=== PATIENT | female | born 1940 | race Caucasian/White ===

== ENCOUNTER 2018-06-27 16:23 | Emergency (ER) | payer OTHER ==
[~2018-06-27] VITALS: Ht 147.3 cm; Wt 59.0 kg
[~2018-06-27 16:23] MED LIST: ACEDIPPM PO; ALBU90OI6 INH; ALBU90OI61 INH; AMOX500; ASCO500 PO; ASPI81EC PO; ATOR40TA; ATOR80; AZIT250 PO; CARV3.125 PO; CEPH500 PO; CLIN300 PO; CLOP75; CLOP75 PO; CRANBERRY250 MG PO; CYAN1000 PO; Cefpodoxime Pr100 MG PO; Cranberry300 MG PO; DIPH50 PO; DOCU100 PO; DULO60 PO; FLUC150A PO; FLUSAL2505 IH; Furosemide20 MG PO; HYDACE5 PO; HYDACE5325 PO; INDO25 PO; Indomethacin25 MG PO; LAVAP17G PO; LISI5 PO; MAGCHL64ER PO; METO25ER PO; METO50; MOXI400 PO; NAPR500 PO; OXYACE5T PO; PANT40; PANT40 PO; POTCHL10ER PO; PRAV20 PO; PRED10 PO; PRED20 PO; Percocet 5-3251 EACH PO; Pyridium100 MG PO; RANO500T; SERT100 PO; SULTRIDS PO; TIOT18 INH; TRAZ50 PO; TRAZADONE; UBID10 PO; Zanaflex2 M1 PO
[2018-06-27 17:59] LABS: BASOPHILS ABSOLUTE AUTO 0.03 K/mm3 (0.00-0.23); BASOPHILS PERCENT AUTO 0 % (0-2); EOSINOPHILS ABSOLUTE AUTO 0.13 K/mm3 (0.00-0.68); EOSINOPHILS PERCENT AUTO 1 % (0-6); Hematocrit 33.7 % (33.0-51.0); Hemoglobin 10.9 g/dL (11.5-16.0); IMMATURE GRAN ABSOLUTE AUTO 0.02 K/mm3 (0.00-0.10); IMMATURE GRAN PERCENT AUTO 0 % (0-1); LYMPHOCYTES ABSOLUTE AUTO 1.91 K/mm3 (0.84-5.20); LYMPHOCYTES PERCENT AUTO 20 % (21-46); MONOCYTES ABSOLUTE AUTO 1.07 K/mm3 (0.16-1.47); MONOCYTES PERCENT AUTO 11 % (4-13); Mean Corpuscular HGB 28.5 pg (26.0-34.0); Mean Corpuscular HGB Conc 32.3 g/dL (31.5-36.5); Mean Corpuscular Volume 88 fL (80-100); Mean Platelet Volume 9.6 fL (9.1-12.4); NEUTROPHILS PERCENT AUTO 67 % (41-73); Platelet Count 263 K/mm3 (150-400); RDW Coefficient Variation 12.9 % (11.7-14.2); RDW Standard Deviation 41.8 fL (35.1-46.3); Red Blood Cell Count 3.82 M/mm3 (3.80-5.20); White Blood Cell Count 9.56 K/mm3 (4.00-11.30)
[2018-06-27 18:12] LABS: Albumin, Blood 3.3 g/dL (3.4-5.0); Albumin/Globulin Ratio 0.8 (0.8-1.8); Bilirubin, Total 0.4 mg/dL (0.1-1.0); Calcium, Blood 9.7 mg/dL (8.5-10.1); Globulin, Blood 4.1 g/dL (2.2-4.0); Potassium, Blood 4.9 mmol/L (3.5-5.5); Total Protein, Blood 7.4 g/dL (6.4-8.2)
[2018-06-27 19:50] LABS: Source, Urine Clean Catch
[2018-06-27 19:54] LABS: Appearance, Urine Turbid (Clear); Bilirubin, Urine Neg (Neg); Blood, Urine 5+ (Neg); Glucose Qualitative, Urine Neg (Neg); Ketones, Urine 1+ (Neg); Leukocyte Esterase, Urine 3+ (Neg); Nitrite, Urine Neg (Neg); Protein, Urine 4+ (Neg); Urobilinogen, Urine NORM (Normal)
[2018-06-27 20:17] LABS: White Blood Cells, Urine TNTC /hpf (0-5)
[2018-06-27 20:18] LABS: Bacteria Many /hpf; Squamous Epithelial Cells Few /hpf (Few); Triple Phosphate Crystals Few /hpf
[2018-06-27] MEDS ORDERED: CEFD300 PO (22:02)
[2018-06-27] MEDS ORDERED: Prednisone20 MG PO (22:02)
== END 2018-06-27 22:49 | disposition home or self-care (01) ==
LOC: ER 16:23
PROVIDERS: Physician Assistant
DX: N39.0 Urinary tract infection, site not specified (principal); J44.1 Chronic obstructive pulmonary disease with (acute) exacerbation; Z88.8 Allergy status to other drugs, medicaments and biological substances; Z79.899 Other long term (current) drug therapy; Z79.82 Long term (current) use of aspirin; Z79.52 Long term (current) use of systemic steroids; I10 Essential (primary) hypertension; J44.9 Chronic obstructive pulmonary disease, unspecified; F17.210 Nicotine dependence, cigarettes, uncomplicated
CPT/HCPCS: 71046; 80053; 81001; 85025; 87077; 87086; 87186; 94640; 96374; 99284-25; J2930

== ENCOUNTER → 2018-09-14 | Outpatient (CLI) | payer OTHER ==
[~2018-09-14] MED LIST changes: +CEFD300 PO; +Prednisone20 MG PO
== END ==
LOC: LAB SHORT 19:06 → LAB 19:06
DX: N39.0 Urinary tract infection, site not specified (principal)
CPT/HCPCS: 87086

== ENCOUNTER → 2018-09-23 | Outpatient (CLI) | payer OTHER | LOC: LAB 18:58 → LAB SHORT 18:58 | DX: R05 Cough (principal) | CPT/HCPCS: 87070; 87077; 87186; 87798 ==

== ENCOUNTER → 2019-01-25 | Outpatient (CLI) | payer OTHER ==
[~2019-01-25] MED LIST changes: +Amoxicillin500 MG PO; +B Complex-Foli1 EACH PO; +Bactrim Ds Tab1 EACH PO; -CLOP75; +Calcium Magnes1 EAC1 PO; -FLUSAL2505 IH; +FLUT1DIS8 INH; +FURO20 PO; +LORA.5 PO; +LOSA25 PO; +PACERONE100 MG PO; +PROBIOTIC250 MG PO; -RANO500T; +RANO500T PO; +SENN187 PO; +VITAMIN D31000 UNI2 PO
== END ==
LOC: LAB 19:26 → LAB SHORT 19:26
DX: N39.0 Urinary tract infection, site not specified (principal)
CPT/HCPCS: 87077; 87086; 87186

== ENCOUNTER 2019-01-28 06:32 | Inpatient (IN) | payer OTHER ==
[~2019-01-28] VITALS: Ht 147.3 cm; Wt 56.0 kg
[~2019-01-28 06:32] MED LIST changes: -Amoxicillin500 MG PO; -B Complex-Foli1 EACH PO; -Bactrim Ds Tab1 EACH PO; -Calcium Magnes1 EAC1 PO; -FURO20 PO; -LORA.5 PO; -LOSA25 PO; -PACERONE100 MG PO; -PROBIOTIC250 MG PO; -SENN187 PO; -VITAMIN D31000 UNI2 PO
[2019-01-28 06:46] LABS: BASOPHILS ABSOLUTE AUTO 0.03 K/mm3 (0.00-0.23); BASOPHILS PERCENT AUTO 0 % (0-2); EOSINOPHILS ABSOLUTE AUTO 0.19 K/mm3 (0.00-0.68); EOSINOPHILS PERCENT AUTO 2 % (0-6); Hemoglobin 7.7 g/dL (11.5-16.0); IMMATURE GRAN ABSOLUTE AUTO 0.02 K/mm3 (0.00-0.10); IMMATURE GRAN PERCENT AUTO 0 % (0-1); LYMPHOCYTES PERCENT AUTO 23 % (21-46); MONOCYTES ABSOLUTE AUTO 0.73 K/mm3 (0.16-1.47); MONOCYTES PERCENT AUTO 8 % (4-13); Mean Corpuscular HGB 28.1 pg (26.0-34.0); Mean Corpuscular HGB Conc 30.8 g/dL (31.5-36.5); Mean Corpuscular Volume 91 fL (80-100); Mean Platelet Volume 9.5 fL (9.1-12.4); NEUTROPHILS PERCENT AUTO 66 % (41-73); Platelet Count 251 K/mm3 (150-400); RDW Coefficient Variation 13.6 % (11.7-14.2); Red Blood Cell Count 2.74 M/mm3 (3.80-5.20); White Blood Cell Count 8.77 K/mm3 (4.00-11.30)
[2019-01-28 07:08] LABS: Albumin, Blood 3.2 g/dL (3.4-5.0); Albumin/Globulin Ratio 0.9 (0.8-1.8); Bilirubin, Total 0.3 mg/dL (0.1-1.0); Bun/Creatinine Ratio 15.8 (12.0-20.0); Calcium, Blood 8.7 mg/dL (8.5-10.1); Creatinine, Blood 1.2 mg/dL (0.40-1.00); Globulin, Blood 3.5 g/dL (2.2-4.0); Potassium, Blood 4.5 mmol/L (3.5-5.5); Total Protein, Blood 6.7 g/dL (6.4-8.2)
--- NOTE | 2019-01-28 11:41 | NUR ---
called [facility] pharmacy and spoke to autumn, a copy of pt active medications should be faxed over shortly.
[2019-01-28 13:29] LABS: Percent Saturation 7.4 % (15.0-50.0)
[2019-01-28] MEDS ORDERED: B Complex-Foli1 EACH PO (13:48)
[2019-01-28] MEDS ORDERED: Bactrim Ds Tab1 EACH PO (13:50)
[2019-01-28] MEDS ORDERED: Calcium Magnes1 EAC1 PO (13:54)
[2019-01-28] MEDS ORDERED: LORA.5 PO (13:55)
[2019-01-28] MEDS ORDERED: LOSA25 PO (13:56)
[2019-01-28] MEDS ORDERED: METO25ER PO (13:58)
[2019-01-28] MEDS ORDERED: PROBIOTIC250 MG PO (14:00)
[2019-01-28] MEDS ORDERED: SENN187 PO (14:02)
[2019-01-28] MEDS ORDERED: VITAMIN D31000 UNI2 PO (14:03)
--- NOTE | 2019-01-28 18:23 | NUR ---
SPOKE TO DR NORMAN- PT HAVING EXTREME DYSPNEA ON EXERTION. DR CAMPOS. PT BECOMING TACHYCARDIC, NO ORDER FOR TELE. PT HAVING PAIN RADIATING BOTH SIDES OF HER NECK INTO HER JAW DURRING THIS EPISODE. DR CAMPOS. NOTIFIED THAT HOME MED REC COMPLETE. VERBAL ORDERS RECIEVED FOR PT HOME MEDS BY YOSEPH PATTERSON.
--- NOTE | 2019-01-28 19:26 | NUR ---
MATERIALS ASSISTANT INITIATION- REPORT COMPLETED WITH NIGHT RN. PT WAS BEING ASSISTED TO THE BSC BY THE PRODUCE SHIPPER. NIGHT RN AT THE BEDSIDE MEDICATING PT WITH PO ATIVAN, PT HAS Hx ANXIETY. PT HAS HAD EPISODES OF DYSPNEA ON EXERTION (DR CAMPOS). PT HAD A BM IN THE BSC. PT UNABLE TO RECOVER SHE HAD PREVIOUSLY. PT HR 144 AND HOLDING PT BECAME FIDGETTY, UNABLE TO OBTAIN BP, RESP RATE 29, O2 SATS 88% AND DROPPING, PT STATED "I'M DYING." "I'M BREATHING BUT IT'S NOT GOING IN." PT BECAME DIAPHORETIC AND O2 SATS WERE DROPPING RAPIDLY DOWN TO THE 66% RANGE, CALLED MATERIALS ASSISTANT TURNED UP O2 TO 7L VIA NC, RT SCOTT ARRIVED FIRST AND ASSESSED PT. O2 SATS BY THEN WERE BACK TO 84% PT STILL IN NOTABLE DISTRESS. PT PLACED ON NRB MASK ON 15 L AND HER O2 SATS INCREASED SLOWLY TO 99%. AT THE BEDSIDE EKG PERFORMED, PT TRANSFERED TO PCU BY 2 RN'S BEDSIDE REPORT GIVEN IN THE ROON TO THE NIGHT RN THERE.
--- NOTE | 2019-01-28 22:16 | NUR ---
Pt had rapid response called at shift change. Pt was taken to PCU 1 with all belongings. Rosa RN from day shift went with patient and gave report to receiving RN. Please see SALES DEPARTMENT CLERK charting.
--- NOTE | 2019-01-28 22:20 | NUR ---
RAPID RESPONSE TRANSFER TO PCU PATIENT ARRIVED TO PCU VIA BED AND STRANSFERED W/ SLIDER SHEET TO PCU 1 BED VIA 4 ASSIT SLIDE TRANSFER. PATIENT ON NONREBREATHER MASK AND THEN PLACED ON BIPAP - RESPIRTORY THERAPY IN THE ROOM. VS OBTAINED. PATIENT EDUCATED TO BIPAP. PATIENT REMAINS VERY TACHYPNEIC WITH RR IN THE 30'S. CONTINUOUS BIOX IN PLACE - FILTER CLOTH MAKER REMAINS WITH PATIENT TO SETTLE ANXIOUSNESS.
--- NOTE | 2019-01-28 22:25 | NUR ---
PROVIDER NOFIFIED. MD KOCH CALLED TO UPDATE ON PATIENTS CONDITION. DISCUSSED PATIENTS ANXIOUSNESS WITH HIM - ORDERS GIVEN FOR IV ATIVAN. ALSO RECIEVE PCU TRANSFER ORDER. UPDATED MD REGARD AM CHEST XRAY PERFORMED AT 0600 ON 01/28 AND THAT WE DID NOT GET AN [id number] XRAY AFTER PATIENTS RAPID RESPONSE ON MEDICAL FLOOR - NO NEW ORDERS GIVEN REGARDING CHEST XRAY. ALSO DISCUSSED WITH MD KOCH PE R/O - NO ORDERS GIVEN REGARDING PE R/O AT THIS TIME. PATIENT MEDICATED WITH IV ATIVAN. CALL LIGHT W/I REACH, BED ALARM ON. WILL CONTINUE TO MONITOR.
--- NOTE | 2019-01-28 22:27 | NUR ---
NOC SHIFT NOTE UPDATE PATIENT SLIGHTLY MORE RESTFUL WITH IV ATIVAN ON BOARD. DOES CONTINUE TO PULL AT BIPAP - DISCUSSED WITH BOOK BINDER AND RESPIRTORY CARE. PATIENT TOLERATING BIPAP AT THIS TIME WITH SMALL BREAKS. CONTINUOUS BIOX IN PLACE. PATIENT NOTED TO BE 100% PACED IN THE 100'S - CHEST PACER NOTED AND MIDLINE CHEST SCAR NOTED FROM CABG HX. CALL LIGHT W/I REACH AND BED ALARM ON. WILL CONTINUE TO MONITOR.
--- NOTE | 2019-01-28 23:50 | NUR ---
PROVIDER CALLED MD NAYAK CALLED. REPORTED THAT PATIENT CONTINUES TO BE ANXIOUS WITH CURRENT DOSE OF ATIVAN - DOSING CHANGED.
--- NOTE | 2019-01-29 00:38 | NUR ---
REPORTED TO CHAR HAMEED. PATIENT RESTING NOW WITH BIPAP AND CONTINUOUS BIOX IN PLACE. CALL LIGHT W/I REACH AND BED ALARM ON.
--- NOTE | 2019-01-29 05:24 | NUR ---
ASSUMED PT CARE FROM YOSEPH PARDO AT 0300 PT SITTING UPRIGHT IN BED ALERT AND ORIENTED X2; UNABLE TO RECALL THAT SHE IS IN [place]. THOUGHT SHE WAS IN [place]; HOWEVER, SHE DID KNOW SHE WAS IN A HOSPITAL SETTING. BIPAP IN PLACE; 04/01 WITH FIO2 40%; RR 30'S; OXYGEN SATURATIONS 94%. OXYGEN SATURATIONS QUICKLY DECLINE WITH ANY REMOVAL OF BIPAP MASK. PT UNABLE TO EFFECTIVELY COUGH UP SECRETIONS AND CLEAR AIRWAY. LUNG SOUNDS ARE COARSE T/O ALL LOBES WITH EXPIRATORY WHEEZES NOTED. PT ALSO NOTED TO HAVE AN INSPIRATORY RUB NOTED AT END EXPIRATION TO LEFT LOWER LOBE. PT DENIES ANY CHEST PAIN OR PLEURITIC PAIN AT THIS TIME. PT IS 100% PACED WITH HR 100. SKIN IS WARM TO THE TOUCH; NO EDEMA NOTED. DUSKY/PALE NAIL BEDS WITH GOOD CAPILLARY REFILL; ALL EXTREMITIES ARE WARM. ABDOMEN IS SOFT, TENDER TO PALPATION TO LOWER QUADRANTS WITH HYPOACTIVE TONES. PT STATES SHE HAD TWO BM'S YESTERDAY. PT NOTED TO BE INCONTINENT OF URINE WITH A STREAK OF BM NOTED TO ATTENDS. AMADA CARE AND ATTENDS MANAGEMENT GIVEN; PT REPOSITIONED FOR COMFORT AND IS NOW CURRENTLY SLEEPING. HELD MORNING DOSE OF PROTONIX D/T PT BEING SOB AND OXYGEN SATURATIONS QUICKLY DECLINING WITH REMOVAL OF BIPAP; HIGH ASPIRATION RISK. CALL LIGHT LEFT WITHIN REACH, BUT WILL CONTINUE TO MAKE FREQUENT VISUAL CHECKS PT IS FORGETFUL. WILL CONTINUE TO MONITOR UNTIL REPORT IS HANDED OFF TO ONCOMING RN.
--- NOTE | 2019-01-29 05:42 | NUR ---
CALL OUT TO DR. KENNEY REGARDING CRITICAL LAB RESULT
--- NOTE | 2019-01-29 06:28 | NUR ---
CALL PLACED TO DR. KENNEY REGARDING NEW ORDERS FOR PO MEDS. INFORMED DR. KENNEY THAT PT IS DEPENDENT ON BIPAP AT THIS TIME AND IS NOT SAFE TO SWALLOW. ORDERS TO KEEP MEDICATIONS ON EMAR AND TO ADMINISTER WHEN PT IS ABLE TO SAFELY SWALLOW.
[2019-01-29 06:54] LABS: Prothrombin Time Results 10.6 Sec (9.7-11.5)
--- NOTE | 2019-01-29 07:48 | NUR ---
HEPARIN STARTED HEPARIN STARTED & VERIFIED BY ELVA DODSON RN. BOLUS GIVEN OF 3500 UNITS. HEPARIN DRIP RUNNING AT 12.2 ML/HR. WILL CONTINUE TO MONITOR.
[2019-01-29 11:12] LABS: Source, Urine Catheter
[2019-01-29 11:22] LABS: Appearance, Urine Turbid (Clear); Bilirubin, Urine Neg (Neg); Blood, Urine 5+ (Neg); Color, Urine Yellow (P-Yellow); Glucose Qualitative, Urine Neg (Neg); Ketones, Urine 1+ (Neg); Leukocyte Esterase, Urine 3+ (Neg); Nitrite, Urine Pos (Neg); Protein, Urine 3+ (Neg); Urobilinogen, Urine 1+ (Normal)
[2019-01-29 11:58] LABS: Bacteria Mod /hpf; Red Blood Cells, Urine 25-50 /hpf (0-2); Squamous Epithelial Cells Mod /hpf (Few); White Blood Cells, Urine TNTC /hpf (0-5)
--- NOTE | 2019-01-29 12:13 | NUR ---
Echocardiogram using 0.45ml of Definity contrast performed.
[2019-01-29 12:46] LABS: Percent Saturation 11.6 % (15.0-50.0)
[2019-01-29 12:54] LABS: Hematocrit 23.4 % (33.0-51.0); Hemoglobin 7.3 g/dL (11.5-16.0); Mean Corpuscular HGB 28.5 pg (26.0-34.0); Mean Corpuscular HGB Conc 31.2 g/dL (31.5-36.5); Mean Corpuscular Volume 91 fL (80-100); Mean Platelet Volume 9.8 fL (9.1-12.4); Platelet Count 241 K/mm3 (150-400); RDW Coefficient Variation 13.4 % (11.7-14.2); RDW Standard Deviation 45.5 fL (35.1-46.3); Red Blood Cell Count 2.56 M/mm3 (3.80-5.20); White Blood Cell Count 14.18 K/mm3 (4.00-11.30)
[2019-01-29 13:17] LABS: Stool Occult Blood Guaiac 1 Neg (Neg)
--- NOTE | 2019-01-29 13:54 | NUR ---
PT TOLERATED OXIMIZER PT TOLERATED OXIMIZER AT 5L O2, 10L O2 WHILE EATING FOR APPROX. 1 HOUR. PT BACK ON OXIMIZER NOW. WILL CONTINUE TO MONITOR.
[2019-01-29 16:52] LABS: Magnesium, Blood 1.9 mg/dL (1.6-2.4); Potassium, Blood 4.6 mmol/L (3.5-5.5)
--- NOTE | 2019-01-29 17:56 | NUR ---
SHIFT SUMMARY PT HR INCREASED TO THE 130-140S AT 1543 TODAY. PT SUSTAINED THIS RATE FOR APPROX. AN HOUR. DR. GAMBLE CALLED & NOTIFIED OF EVENT. AMIO BOLUS & DRIP ORDERED & OBTAINED, & EKG COMPLETED. PT ALSO STARTED ON BLOOD. PT TOLERATING TRANSFUSION WELL AT THIS TIME. NO SIGNS OF FLUID OVERLOAD OR REACTIONS. PT TOELRATING HEPARIN DRIP AT THIS TIME WELL. PT OFF BIPAP AT THIS TIME FOR DINNER. PT TOLERATING 10L O2 VIA HIGH FLOW NC WHILE EATING. CHEN PLACED PER DR. GAMBLE FOR STRICT I&OS. PT HR DECREASED TO 100-110S. SECOND EKG COMPLETED FOR COMPARISON. NO OTHER CHANGES IN ASSESSMENT AT THIS TIME. VSS. WILL CONTINUE TO MONITOR UNTIL TURNOVER IS COMPLETE.
--- NOTE | 2019-01-29 18:52 | NUR ---
PT CURRENTLY TOLERATING 8L O2 VIA NC. WILL CONTINUE TO MONITOR.
--- NOTE | 2019-01-30 05:59 | NUR ---
SHIFT SUMMARY PT HAS REMAINED AOX4 THROUGHOUT SHIFT. VSS. PLEASANT AND COOPERATIVE WITH CARE. PT IS FIDGETY AND OCCASIONALLY RESTLESS WHEN FEELING ANXIOUS, BUT RESTLESNESS HAS DISSIPATED THROUGHOUT THE NIGHT. O2 SATS HAVE REMAINED >90% ON 5L VIA HFNC OR ON BIPAP WITH SETTINGS OF 12/7 35% FIO2. PT HAS WORN BIPAP FOR APPROXIMATELY 7 HOURS WHILE SLEEPING THROUGHOUT THE NIGHT. MEDICATED ONCE FOR ANXIETY PRIOR TO BIPAP PLACEMENT THAT ASSISTED IN CALMING PT AND ALLOWING HER TO KEEP BIPAP IN PLACE THROUGHOUT MUCH OF THE NIGHT. HR HAS DECREASED THROUGHOUT THE NIGHT AND IS CURRENTLY RANGING IN THE 70-80s. AMIODARONE DRIP AND HEPARIN DRIP BOTH CONTINUE TO INFUSE PER ORDERS. NO OTHER CHANGES FROM INITIAL ASSESSMENT. WILL CONTINUE TO MONITOR AND REPORT TO ONCOMING SHIFT RN. BED IN LOW POSITION, CALL LIGHT IN REACH. BED ALARM SET FOR SAFETY.
[2019-01-30 08:24] LABS: Hematocrit 28.2 % (33.0-51.0); Hemoglobin 8.8 g/dL (11.5-16.0); Mean Corpuscular HGB 27.8 pg (26.0-34.0); Mean Corpuscular HGB Conc 31.2 g/dL (31.5-36.5); Mean Corpuscular Volume 89 fL (80-100); Mean Platelet Volume 10.3 fL (9.1-12.4); Platelet Count 266 K/mm3 (150-400); RDW Coefficient Variation 15.3 % (11.7-14.2); RDW Standard Deviation 50.7 fL (35.1-46.3); Red Blood Cell Count 3.16 M/mm3 (3.80-5.20); White Blood Cell Count 22.03 K/mm3 (4.00-11.30)
--- NOTE | 2019-01-30 08:30 | NUR ---
ASSESSMENT- PT ASLEEP WITH BIPAP ON, LEANING TO SIDE. REPOSTIONED, AWAKE, ALERT. ABLE TO ANSWER QUESTIONS REGARDING CARE. EATING BREAKFAST BY SELF. IV AMIODARONE GTT AT 0.5 MG/MIN, HEPARIN GTT AT 17 UNITS/KG/HR, TWO PIVS INTACT. LUNGS WITH EXPIRATORY WHEEZES, RHONCHI, CONGESTED COUGH. NO N/V. UO VIA CHEN DARK TEA COLORED WITH SEDIMENT. BED ALARM ON, REVIEWED PLAN OF CARE.
[2019-01-30 08:37] LABS: Bun/Creatinine Ratio 40.2 (12.0-20.0); Calcium, Blood 9.1 mg/dL (8.5-10.1); Creatinine, Blood 1.27 mg/dL (0.40-1.00); Potassium, Blood 5.2 mmol/L (3.5-5.5)
--- NOTE | 2019-01-30 11:00 | NUR ---
PT ABLE TO REST ON HIGH FLOW NASAL CANNULA. DENIES COMPLAINTS.
--- NOTE | 2019-01-30 11:31 | NUR ---
REPORT FROM STELLA HAMEED. ASSUMED PT CARE.
--- NOTE | 2019-01-30 12:55 | NUR ---
Initial palliative care consult: Aliyah is a 79 year old with a history of CAD, CABG in 2010, COPD on home O2, CHF (EF of 41%), ischemic cardiomyopathy, HTN, pacemaker. She was admitted on 01/28/19 with a COPD exacerbation and NSTEMI. She is currently on amiodarone and heparin gtts. She is SOB with speaking at times and her O2 sats dropped with a coughing spell. She was unable to cough up any phlegm during my visit. Visit was kept short due to her breathing difficulties and coughing spells. Aliyah states her daughter Gracy from cancer this past June. She currently lives with her granddaughter, great grandchildren and pets. She states she had a quit date for smoking picked out and she was "smoking a lot" before the date and she feels that contributed to her hospital admission. She reports that she is aware her health is declining. She states "I just don't want to in the same year my daughter did. That would be too hard on my family." Discussed current POLST on file and she confirmed her wishes on the POLST that she wants to be a DNR. Called hospitalist and changed her code status to DNR per her wish. Briefly talked about what her goals for care would be in the future. This conversation was cut short due to her desaturations with coughing. Sat quietly at her bedside and held her hand while she recovered slowly. After Aliyah's breathing improved and was less labored she said she had some thinking to do about her future care needs. This financial writer was unable to have an in depth discussion at this time. PC to follow up with Aliyah to dicuss her goals and wishes and come up with a POC.
--- NOTE | 2019-01-30 13:12 | NUR ---
PT HEPARIN INCREASED TO 16.9ML/HR PER PHARMACY EDIT. PT SEEMS TO BE SLEEPING, RESP WNL FOR PT. NADN. WILL CONT TO MONITOR.
--- NOTE | 2019-01-30 14:30 | NUR ---
PT RESTING IN POSITION OF COMFORT. BIPAP IN PLACE.
--- NOTE | 2019-01-30 16:00 | NUR ---
SPOKE WITH DR GAMBLE RE AMIODORONE DRIP COMPLETION AND NEED FOR PO ORDERS. ORDERS RECEIVED TO START AMIODORONE 200MG PO BID
--- NOTE | 2019-01-30 17:23 | NUR ---
VSS. DR GAMBLE TO ROOM TO SEE PT. PT MEDICATED PER EMAR. DRINKING PROVIDED CRANBERRY JUICE WITH MIRALAX AND SCHED MEDS.
--- NOTE | 2019-01-30 18:45 | NUR ---
SHIFT SUMMARY PT ALERT AND ORIENTED X3 THROUGH OUT SHIFT. CONFUSED TO DATE. PT COOPERATIVE AND ABLE TO PARTICIPATE IN CARE. PT TOLERATED NASAL CANNULA O2 TODAY, ON BIPAP FOR APPROX 4 HRS OF SHIFT. PT WILL OFTEN TAKE OFF O2 CANNULA AND SATS DROP TO 78-82%. PT C/O TODAY OF CONSTIPATION. BOWEL CARE STARTED. PT ZARI 25-50% OF MEALS. AMIODORONE DRIP COMPLETE AT APPROX 1615. STARTED ON AMIO 200MG PO BID BY DR GAMBLE. HR PACED AT 70'S. NO C/O CP TODAY. SKIN WNL, HEPARIN INF WELL, RATE INCREASED TODAY PER PHARMACY/LAB EDITS.
[2019-01-31 04:22] LABS: BASOPHILS ABSOLUTE AUTO 0.01 K/mm3 (0.00-0.23); BASOPHILS PERCENT AUTO 0 % (0-2); EOSINOPHILS PERCENT AUTO 0 % (0-6); Hematocrit 24.8 % (33.0-51.0); Hemoglobin 7.8 g/dL (11.5-16.0); IMMATURE GRAN PERCENT AUTO 1 % (0-1); LYMPHOCYTES ABSOLUTE AUTO 0.62 K/mm3 (0.84-5.20); LYMPHOCYTES PERCENT AUTO 4 % (21-46); MONOCYTES ABSOLUTE AUTO 0.56 K/mm3 (0.16-1.47); MONOCYTES PERCENT AUTO 3 % (4-13); Mean Corpuscular HGB 27.6 pg (26.0-34.0); Mean Corpuscular HGB Conc 31.5 g/dL (31.5-36.5); Mean Corpuscular Volume 88 fL (80-100); Mean Platelet Volume 9.8 fL (9.1-12.4); NEUTROPHILS ABSOLUTE AUTO 15.14 K/mm3 (1.96-9.15); NEUTROPHILS PERCENT AUTO 92 % (41-73); Platelet Count 219 K/mm3 (150-400); Red Blood Cell Count 2.83 M/mm3 (3.80-5.20); White Blood Cell Count 16.43 K/mm3 (4.00-11.30)
[2019-01-31 04:41] LABS: Bun/Creatinine Ratio 45.2 (12.0-20.0); Calcium, Blood 8.8 mg/dL (8.5-10.1); Creatinine, Blood 1.15 mg/dL (0.40-1.00); Potassium, Blood 4.8 mmol/L (3.5-5.5)
--- NOTE | 2019-01-31 05:26 | NUR ---
SHIFT SUMMARY PT HAS REMAINED AOX3 THROUGHOUT SHIFT, DISORIENTED TO DATE. DOES REQUIRE FREQUENT REMINDING TO REPLACE NASAL CANNULA AND NEED FOR MEDICAL EQUIPMENT BEING USED. VSS. VERY PLEASANT AND COOPERATIVE WITH CARE. O2 SATS HAVE REMAINED >90% ON 5L VIA HFNC OR ON BIPAP WITH SETTINGS OF 12/7 30% FIO2. PT CAN BE VERY FIDGETY AND ANXIOUS, BUT IMPROVES WITH ORDERED ANXIETY MEDICATION AND TOLERATES BIPAP WELL. PT HAS RESTED THROUGHOUT THE NIGHT, WAKING EASILY FOR CARE. AMBULATED TO BEDSIDE COMMODE WITH 1-2 PERSON ASSIST, PT REMAINS FAIRLY WEAK IN BLEs. HEPARIN DRIP CONTINUES TO INFUSE PER PHARMACY DOSING. NO OTHER CHANGES NOTED FROM INITIAL ASSESSMENT. WILL CONTINUE TO MONITOR AND REPORT TO ONCOMING SHIFT RN. BED IN LOW POSITION,CALL LIGHT IN REACH. BED ALARM SET FOR SAFETY.
--- NOTE | 2019-01-31 19:31 | NUR ---
SHIFT SUMMARY A&Ox3, ANXIOUS AT TIMES. PT UP TO CHAIR THIS AFTERNOON AND BSC T/O SHIFT WITH 1-2 PERSON ASSIST. PT DESATURATIONS TO 82-87% WHILE TALKING OR MOVEMENT OF 3L O2 VIA NC, TITRATED FROM 3-5L O2 VIA NC T/O SHIFT. WHILE PT AT REST SPO2 >92% ON 3-5L O2. PT DID NOT USE BIPAP DURING SHIFT. PT REPORTS HEADACHE, DENIES NEEDS FOR PAIN MEDICATION. PT DENIES NAUSEA, HAS GOOD APPETITE. CHEN IN PLACE, PATIENT AND DRAINING. HEPARIN GTT D/C DURING SHIFT. PT SELF SUCTIONS. VSS. NO OTHER ACUTE CHANGES NOTED DURING SHIFT. REPORT GIVEN TO ONCOMING RN.
[2019-02-01 04:20] LABS: BASOPHILS ABSOLUTE AUTO 0.01 K/mm3 (0.00-0.23); BASOPHILS PERCENT AUTO 0 % (0-2); EOSINOPHILS PERCENT AUTO 0 % (0-6); Hematocrit 21.4 % (33.0-51.0); Hemoglobin 6.7 g/dL (11.5-16.0); IMMATURE GRAN ABSOLUTE AUTO 0.07 K/mm3 (0.00-0.10); IMMATURE GRAN PERCENT AUTO 1 % (0-1); LYMPHOCYTES ABSOLUTE AUTO 1.05 K/mm3 (0.84-5.20); LYMPHOCYTES PERCENT AUTO 8 % (21-46); MONOCYTES ABSOLUTE AUTO 0.79 K/mm3 (0.16-1.47); MONOCYTES PERCENT AUTO 6 % (4-13); Mean Corpuscular HGB 27.5 pg (26.0-34.0); Mean Corpuscular HGB Conc 31.3 g/dL (31.5-36.5); Mean Corpuscular Volume 88 fL (80-100); Mean Platelet Volume 9.8 fL (9.1-12.4); NEUTROPHILS ABSOLUTE AUTO 11.62 K/mm3 (1.96-9.15); NEUTROPHILS PERCENT AUTO 86 % (41-73); Platelet Count 198 K/mm3 (150-400); RDW Coefficient Variation 14.6 % (11.7-14.2); RDW Standard Deviation 46.8 fL (35.1-46.3); Red Blood Cell Count 2.44 M/mm3 (3.80-5.20); White Blood Cell Count 13.54 K/mm3 (4.00-11.30)
[2019-02-01 04:35] LABS: Calcium, Blood 8.4 mg/dL (8.5-10.1); Creatinine, Blood 1.07 mg/dL (0.40-1.00); Potassium, Blood 4.9 mmol/L (3.5-5.5)
--- NOTE | 2019-02-01 06:38 | NUR ---
SHIFT SUMMARY PT HAS REMAINED AOX4 THROUGHOUT SHIFT. VSS. PLEASANT AND COOPERATIVE WITH CARE. PT HAS RESTED THROUHGOUT THE NIGHT WITH M-SERIES BIPAP IN PLACE WITH SETTINGS OF 12/7 AND 3L BLEED IN, WHICH PATIENT TOLERATED WELL. O2 SATS HAVE REMAINED >90% ON 3L VIA HFNC OR ON BIPAP. PT REMOVES MASK TO SELF SUCTION WITH YANUER AND WILL OCCASIONALLY NEED REMINDING/ASSISTANCE IN PLACING MASK BACK ON FACE. CONTINUES TO AMBULATE WITH STANDBY ASSIST TO BEDSIDE COMMODE FOR BM, CHEN REMAINS PATENT AND DRAINING TO GRAVITY. NO OTHER CHANGES NOTED FROM INITIAL ASSESSMENT. WILL CONTINUE TO MONITOR AND REPORT TO ONCOMING SHIFT RN. BED IN LOW POSITION, CALL LIGHT IN REACH.
--- NOTE | 2019-02-01 06:55 | NUR ---
PROVIDER CONTACTED ATTEMPTED TO CALL PROVIDER FOR HGB OF 6.7. AWAITING RETURN PHONE CALL.
--- NOTE | 2019-02-01 17:06 | NUR ---
SHIFT SUMMARY REPORT GIVEN TO JASMINA HAMEED, ON MEDICAL FLOOR, PT BEING TRANSFERED TO 341. PT A&Ox3. CALM AND COOPERATIVE DURING SHIFT. PT DENIES PAIN AND NAUSEA, GOOD APPETEITE. PT SOB WITH EXERTION, ON 3L O2 VIA NC AT REST AND 5L O2 VIA NC WITH ACTIVITY AND RECOVERY. PT HAS BIPAP AT BEDSIDE, WEARS WHILE SLEEPING WITH 3L BLEED IN. PT HAS CHEN IN PLACE, PATENT AND DRAINING. PT RECEIVING PO ANTIBIOTICS. 1 PERSON ASSIST TO BSC WITH VERBAL QUES. PT RECEIVING 1 UNIT PRBC, APPEARS TO HAVE TOLERATED IT WELL. VSS. NO OTHER CHANGES NOTED DURING SHIFT. WILL CONTINUE TO MONITOR UNTIL PT TRANSFERED TO ROOM 341.
--- NOTE | 2019-02-01 18:08 | NUR ---
PATIENT IS ALERT AND ORIENTED AND COOPERATIVE WITH CARE. SHE IS EATING DINNER. NO COMPLAINTS. BED ALARM IS ON.3L O2 VIA NC. CHEN IS PATENT AND DRAINING YELLOW URINE. WILL CONTINUE TO MONITOR
[2019-02-02 05:13] LABS: Hematocrit 25.6 % (33.0-51.0); Hemoglobin 8.2 g/dL (11.5-16.0); Mean Corpuscular HGB 28.1 pg (26.0-34.0); Mean Corpuscular Volume 88 fL (80-100); Mean Platelet Volume 9.8 fL (9.1-12.4); Platelet Count 197 K/mm3 (150-400); RDW Coefficient Variation 14.4 % (11.7-14.2); RDW Standard Deviation 45.4 fL (35.1-46.3); Red Blood Cell Count 2.92 M/mm3 (3.80-5.20); White Blood Cell Count 10.79 K/mm3 (4.00-11.30)
[2019-02-02 05:35] LABS: Bun/Creatinine Ratio 34.6 (12.0-20.0); Calcium, Blood 8.5 mg/dL (8.5-10.1); Creatinine, Blood 1.07 mg/dL (0.40-1.00); Potassium, Blood 4.9 mmol/L (3.5-5.5)
--- NOTE | 2019-02-02 16:48 | NUR ---
PATIENT CONTINUES TO HAVE WET, PRODUCTIVE COUGH. HAS COUGHED UP BLOOD AT TIMES WHICH SHE SAYS SHE HAS BEEN DOING ON AND OFF FOR THE LAST FEW MONTHS. NO COMPLAINTS OF PAIN NOTED THIS SHIFT. NO ACUTE CHANGES. PATIENT IS ALERT AND ORIENTED AND USES CALL LIGHT APPROPRIATLEY.
--- NOTE | 2019-02-03 05:12 | NUR ---
SHIFT SUMMARY A/O, ABLE TO MAKE NEEDS KNOWN. COOPERATIVE WITH CARE. CALLS AND ANSWERS QUESTIONS APPROPRIATELY. NO C/O PAIN/DISCOMFORT. APPEARED TO REST MUCH OF SHIFT. NO ACUTE CHANGES NOTED OVERNIGHT. VSS/AFEBRILE. SLIGHTLY DIMINISHED LS TO RUL; CONTINUES TO SAT >95% ON 3L VIA NC. UP WITH 1P ASSIST TO BATHROOM. WCTM. BED IN LOWEST POSITION. CALL LIGHT AND BELONGINGS WITHIN REACH. REPORT TO ONCOMING RN.
[2019-02-03 05:28] LABS: BASOPHILS ABSOLUTE AUTO 0.01 K/mm3 (0.00-0.23); BASOPHILS PERCENT AUTO 0 % (0-2); EOSINOPHILS ABSOLUTE AUTO 0.03 K/mm3 (0.00-0.68); EOSINOPHILS PERCENT AUTO 0 % (0-6); Hemoglobin 8.9 g/dL (11.5-16.0); IMMATURE GRAN PERCENT AUTO 1 % (0-1); LYMPHOCYTES ABSOLUTE AUTO 1.45 K/mm3 (0.84-5.20); LYMPHOCYTES PERCENT AUTO 11 % (21-46); MONOCYTES PERCENT AUTO 8 % (4-13); Mean Corpuscular HGB 28.6 pg (26.0-34.0); Mean Corpuscular HGB Conc 31.8 g/dL (31.5-36.5); Mean Corpuscular Volume 90 fL (80-100); NEUTROPHILS ABSOLUTE AUTO 10.23 K/mm3 (1.96-9.15); NEUTROPHILS PERCENT AUTO 80 % (41-73); Platelet Count 230 K/mm3 (150-400); RDW Coefficient Variation 14.2 % (11.7-14.2); RDW Standard Deviation 45.7 fL (35.1-46.3); Red Blood Cell Count 3.11 M/mm3 (3.80-5.20); White Blood Cell Count 12.82 K/mm3 (4.00-11.30)
[2019-02-03 05:56] LABS: Bun/Creatinine Ratio 36.9 (12.0-20.0); Calcium, Blood 8.6 mg/dL (8.5-10.1); Creatinine, Blood 1.11 mg/dL (0.40-1.00); Potassium, Blood 4.6 mmol/L (3.5-5.5)
--- NOTE | 2019-02-03 11:37 | NUR ---
Spiritual care visit conducted. Patient is sitting on a chair and alert. Patient shares about her family unit complications, the of her daughter in June of 2018 and about her zoila in God. I listen emapthaically and provide grief support, spiritual guidance and prayer. Patient responds well and shows signs of restored zoila. I will continue to remainavailable to patient and family.
--- NOTE | 2019-02-03 17:37 | NUR ---
NO ACUTE CHANGES TO PATIENT. SHE HAS SLEPT OR STAYED IN BED OTHER THAN FOR MEALS. CHEN DC'D AND BLADDER TRAINING STARTED. PATIENT IS A/O. SHE CONTINUES TO HAVE LOOSE PRODUCTIVE COUGH. NO OTHER ISSUES NOTED THIS SHIFT. CALL LIGHT WITHIN REACH.
--- NOTE | 2019-02-04 06:06 | NUR ---
SHIFT SUMMARY: A/O, VSS, [place], Responses sometimes don't seem appropriate but this seems to be d/t hearing difficulties. Pleasant, no signs of anxiety. Slept minimally. Reports feeling sinus congestion and itchy nose. 02 93-94 % on 2.5L via NC. Dry hacky sounding cough. Reports cough is productive, but sputum was not observed tonight. Denies pain. Communicating needs. Call button within reach.
[2019-02-04] MEDS ORDERED: PACERONE100 MG PO (10:18)
[2019-02-04] MEDS ORDERED: Amoxicillin500 MG PO (10:22)
[2019-02-04] MEDS ORDERED: FURO20 PO (10:23)
[2019-02-04] MEDS ORDERED: PRED20 PO (10:24)
--- NOTE | 2019-02-04 12:34 | NUR ---
PT DED HOME WITH FAMILY VIA PERSONAL CAR. ALL INSTRUCTIONS AND RX REVIEWED WITH PT WHO VERBALIZED AN UNDERSTANDING. IV REMOVED WITH NO ISSUES. ALL PERSONAL BELONGINGS SENT WITH PT. PT STABLE UPON DC.
== END 2019-02-04 12:21 | disposition home or self-care (01) | DRG 189 ==
LOC: ER 06:32 → ERHOLD 09:04 → PCU 09:04 → MEDS 11:28 → PCU 19:42 → MEDS 02-01 17:19 → ENPENDDIS 02-04 10:35 → MEDS 02-04 12:21
PROVIDERS: Emergency Medicine; Internal Medicine; Internal Medicine Cardiovascular Disease; ADMIT Hospitalist
PROC: 5A09357 Assistance with Respiratory Ventilation, Less than 24 Consecutive Hours, Continuous Positive Airway Pressure (ICD-10-PCS; principal; 2019-01-29)
PROC: 30233N1 Transfusion of Nonautologous Red Blood Cells into Peripheral Vein, Percutaneous Approach (ICD-10-PCS; 2019-01-30)
DX: J96.21 Acute and chronic respiratory failure with hypoxia (principal); I21.4 Non-ST elevation (NSTEMI) myocardial infarction; I50.22 Chronic systolic (congestive) heart failure; J44.9 Chronic obstructive pulmonary disease, unspecified; I25.10 Atherosclerotic heart disease of native coronary artery without angina pectoris; F17.210 Nicotine dependence, cigarettes, uncomplicated; Z95.1 Presence of aortocoronary bypass graft; Z79.82 Long term (current) use of aspirin; I25.5 Ischemic cardiomyopathy; I35.0 Nonrheumatic aortic (valve) stenosis; D64.9 Anemia, unspecified; I11.0 Hypertensive heart disease with heart failure
CPT/HCPCS: 36415; 36430; 51702; 71045; 71046; 71250; 80048; 80053; 81001; 82272; 82728; 83540; 83550; 83735; 83880; 84132; 84484; 85025; 85027; 85049; 85610; 85730; 86850; 86900; 86901; 86923; 87077; 87086; 87186; 93005; 93010; 94640; 94660; 94760; 94762; 97110; 97116; 97162; 97166; 97530; 97535; 99285-25; A9270; C8929; J0282; J1644; J1650; J1940; J2060; J2930; J7050; J7060; J7512; P9016; Q9957

== ENCOUNTER 2019-05-02 00:16 | Inpatient (IN) | payer OTHER ==
[~2019-05-02] VITALS: Ht 147.3 cm; Wt 55.1 kg
[~2019-05-02 00:16] MED LIST changes: -ASPI81EC PO; +Amoxicillin500 MG PO; +B Complex-Foli1 EACH PO; +Bactrim Ds Tab1 EACH PO; +Calcium Magnes1 EAC1 PO; +FURO20 PO; +LORA.5 PO; +LOSA25 PO; +LOW DOSE ASPIRI81 M1 PO; +PACERONE100 MG PO; +PROBIOTIC250 MG PO; +SENN187 PO; +VITAMIN D31000 UNI1 PO
[2019-05-02 00:50] LABS: BASOPHILS ABSOLUTE AUTO 0.02 K/mm3 (0.00-0.23); BASOPHILS PERCENT AUTO 0 % (0-2); EOSINOPHILS ABSOLUTE AUTO 0.01 K/mm3 (0.00-0.68); EOSINOPHILS PERCENT AUTO 0 % (0-6); Hematocrit 26.9 % (33.0-51.0); Hemoglobin 8.5 g/dL (11.5-16.0); IMMATURE GRAN ABSOLUTE AUTO 0.05 K/mm3 (0.00-0.10); IMMATURE GRAN PERCENT AUTO 0 % (0-1); LYMPHOCYTES ABSOLUTE AUTO 1.11 K/mm3 (0.84-5.20); LYMPHOCYTES PERCENT AUTO 10 % (21-46); MONOCYTES ABSOLUTE AUTO 0.75 K/mm3 (0.16-1.47); MONOCYTES PERCENT AUTO 7 % (4-13); Mean Corpuscular HGB 28.6 pg (26.0-34.0); Mean Corpuscular HGB Conc 31.6 g/dL (31.5-36.5); Mean Corpuscular Volume 91 fL (80-100); Mean Platelet Volume 9.4 fL (9.1-12.4); NEUTROPHILS PERCENT AUTO 83 % (41-73); Platelet Count 288 K/mm3 (150-400); RDW Coefficient Variation 14.4 % (11.7-14.2); RDW Standard Deviation 48.3 fL (35.1-46.3); Red Blood Cell Count 2.97 M/mm3 (3.80-5.20); White Blood Cell Count 11.14 K/mm3 (4.00-11.30)
[2019-05-02 00:57] LABS: PCO2 Arterial 44.3 mmHg (35-45); pH Blood Arterial 7.43 (7.35-7.45)
[2019-05-02 01:11] LABS: Albumin/Globulin Ratio 0.8 (0.8-1.8); Bilirubin, Total 0.5 mg/dL (0.1-1.0); Bun/Creatinine Ratio 29.7 (12.0-20.0); Calcium, Blood 8.5 mg/dL (8.5-10.1); Creatinine, Blood 1.01 mg/dL (0.40-1.00); Globulin, Blood 3.7 g/dL (2.2-4.0); Total Protein, Blood 6.7 g/dL (6.4-8.2)
[2019-05-02] MEDS ORDERED: ATOR20 PO (04:11)
[2019-05-02 05:00] LABS: BASOPHILS ABSOLUTE AUTO 0.03 K/mm3 (0.00-0.23); BASOPHILS PERCENT AUTO 0 % (0-2); EOSINOPHILS ABSOLUTE AUTO 0.01 K/mm3 (0.00-0.68); EOSINOPHILS PERCENT AUTO 0 % (0-6); Hematocrit 25.5 % (33.0-51.0); Hemoglobin 7.8 g/dL (11.5-16.0); IMMATURE GRAN ABSOLUTE AUTO 0.03 K/mm3 (0.00-0.10); IMMATURE GRAN PERCENT AUTO 0 % (0-1); LYMPHOCYTES ABSOLUTE AUTO 1.25 K/mm3 (0.84-5.20); LYMPHOCYTES PERCENT AUTO 13 % (21-46); MONOCYTES ABSOLUTE AUTO 0.71 K/mm3 (0.16-1.47); MONOCYTES PERCENT AUTO 7 % (4-13); Mean Corpuscular HGB Conc 30.6 g/dL (31.5-36.5); Mean Corpuscular Volume 91 fL (80-100); Mean Platelet Volume 9.5 fL (9.1-12.4); NEUTROPHILS ABSOLUTE AUTO 7.85 K/mm3 (1.96-9.15); NEUTROPHILS PERCENT AUTO 79 % (41-73); Platelet Count 271 K/mm3 (150-400); RDW Coefficient Variation 14.6 % (11.7-14.2); RDW Standard Deviation 49.1 fL (35.1-46.3); Red Blood Cell Count 2.79 M/mm3 (3.80-5.20); White Blood Cell Count 9.88 K/mm3 (4.00-11.30)
--- NOTE | 2019-05-02 06:47 | NUR ---
SHIFT SUMMARY NEW ADMIT TO FLOOR AROUND 0340. AOX4. VERY [place], THEREFORE SLOW TO RESPOND TO QUESTIONS, HOWEVER ANSWERS ALL APPROPRIATELY. DENIES PAIN, N/V. REPORTS HER BREATHING "IS BETTER" & DENIES DYSPNEA @REST. SPO2 >90% ON 5L O2 VIA NC, WEARS 3L O2 @BASELINE, E/U RESPIRATIONS, HAS MOIST PRODUCTIVE COUGH W/MODERATE AMOUNT THICK YELLOW GREENISH SPUTUM. TELE IN PLACE, RUNNING 100% PACED W/HR 70. NPO FOR POSSIBLE SPEECH EVAL TODAY. 1 ASSIST TO BSC, SINCE PT DOES GET SOB W/EXERTION. CALL LIGHT IN REACH, BED ALARM ON & I WCTM.
[2019-05-02 11:11] LABS: Percent Saturation 9.3 % (15.0-50.0)
--- NOTE | 2019-05-02 18:41 | NUR ---
PT A/O AND COOPERATIVE WITH CARE, VERY HARD OF HEARING, CALLING APPROPRIATELY, WORKED WITH PT/OT AND WALKED A SHORT DISTANCE. SWALLOW EVAL BY SPEECH THERAPY DONE TODAY, PT TO TAKE HER MEDS WHOLE, ONE AT A TIME IN APPLESAUCE, NO STRAW. IV FERRLECIT STARTED TODAY, TO BE GIVEN DAILY FOR THREE DAYS. NO ACUTE CHANGES NOTED THIS SHIFT, WILL CONTINUE TO MONITOR AND REPORT TO ONCOMING RN
--- NOTE | 2019-05-03 03:49 | NUR ---
SHIFT SUMMARY PATIENT HAD NO ACUTE CHANGES OBSERVED THIS SHIFT. AXOX 3 AND ONE ASSIST TO BSC. PIV REMAIN INTACT. IV ABX INFUSED. WATER QUALITY ASSISTANT REPORTS 100% PACED AT 83. ON 5L O2 NC AND 3L BASELINE. TAKES MEDICATION ONE EACH WITH /PUDDING. VSS/AFBERILE. DENIES PAIN, SOB, AND N/V. [place]. NO STRAWS. ABLE TO SLEEP MOST OF THE SHIFT. CALL LIGHT IN REACH. BED IN LOWEST POSITION. WILL CONTINUE TO MONITOR UNTIL DAY SHIFT NURSE ASSUMES CARE.
[2019-05-03 05:01] LABS: BASOPHILS ABSOLUTE AUTO 0.01 K/mm3 (0.00-0.23); BASOPHILS PERCENT AUTO 0 % (0-2); EOSINOPHILS ABSOLUTE AUTO 0.01 K/mm3 (0.00-0.68); EOSINOPHILS PERCENT AUTO 0 % (0-6); Hematocrit 24.8 % (33.0-51.0); Hemoglobin 7.5 g/dL (11.5-16.0); IMMATURE GRAN ABSOLUTE AUTO 0.05 K/mm3 (0.00-0.10); IMMATURE GRAN PERCENT AUTO 1 % (0-1); LYMPHOCYTES ABSOLUTE AUTO 0.75 K/mm3 (0.84-5.20); LYMPHOCYTES PERCENT AUTO 8 % (21-46); MONOCYTES ABSOLUTE AUTO 0.79 K/mm3 (0.16-1.47); MONOCYTES PERCENT AUTO 8 % (4-13); Mean Corpuscular HGB 28.2 pg (26.0-34.0); Mean Corpuscular HGB Conc 30.2 g/dL (31.5-36.5); Mean Corpuscular Volume 93 fL (80-100); Mean Platelet Volume 9.7 fL (9.1-12.4); NEUTROPHILS ABSOLUTE AUTO 8.34 K/mm3 (1.96-9.15); NEUTROPHILS PERCENT AUTO 84 % (41-73); Platelet Count 273 K/mm3 (150-400); RDW Coefficient Variation 14.6 % (11.7-14.2); RDW Standard Deviation 49.8 fL (35.1-46.3); Red Blood Cell Count 2.66 M/mm3 (3.80-5.20); White Blood Cell Count 9.95 K/mm3 (4.00-11.30)
[2019-05-03 05:35] LABS: Calcium, Blood 8.7 mg/dL (8.5-10.1); Potassium, Blood 4.8 mmol/L (3.5-5.5)
--- NOTE | 2019-05-03 17:45 | NUR ---
SHIFT SUMMARY PT HAD NO ACUTE CHANGES THIS SHIFT. PT DENIED ANY PAIN DURING THE SHIFT. PT WAS UP IN CHAIR FOR MEALS, PT TOLORATED MEALS WELL. PT PLANS ON D/C HOME TOMORROW WILL START TITRATING O2 TO BASELINE OF 3L NC FOR FOME USE.
--- NOTE | 2019-05-04 04:25 | NUR ---
ANSWERING SERVICE MD CONTACT: PT REPORTS DYSURIA. STATES SYMPTOM SIMILAR TO WHAT SHE HAS EXPERIENCED WITH PREVIOUS UTI'S. SPOKE WITH DR. NORMAN. MD STATES CURRENT BROAD [employer] ANTBIOTICS PT IS RECEIVING FOR PNA SHOULD COVER UTI. CONT TO MONITOR SYMPTOMS. NO NEW ORDERS.
--- NOTE | 2019-05-04 06:53 | NUR ---
SHIFT SUMMARY: A/OX3. MAKES NEEDS KNOWN. DENIES PAIN. CONGESTED COUGH PRODUCING SMALL AMTS OF WHITE SPUTUM. ENCOURAGED USE OF FLUTTER VALVE. 02 SATS 90-91% ON 4L. NO ACUTE CHANGES OVER NIGHT. BED LOW, CALL BUTTON IN REACH.
[2019-05-04] MEDS ORDERED: CLINDAMYCIN PO (11:36)
[2019-05-04] MEDS ORDERED: Prednisone10 MG PO (11:40)
[2019-05-04] MEDS ORDERED: OXYGEN (16:28)
--- NOTE | 2019-05-04 18:38 | NUR ---
DISCHARGE SUMMARY PT STABLE, A&O. PT D/C ON 5L OF NC, O2 SCRIPT SENT TO [facility]. EDUCATED PT ON PROPER O2 USAGES. PT D/C BY PRIVATE CAR. GENERAL MAINTENANCE ENGINEER ESCORTED OUT. BELONGINGS SENT WITH PT.
--- NOTE | 2019-05-04 19:18 | NUR ---
will update staff on polst and follow up if pt has copy at home.
== END 2019-05-04 18:36 | disposition home or self-care (01) | DRG 177 ==
LOC: ER 00:16 → MEDS 03:15 → ENPENDDIS 05-04 13:11 → MEDS 05-04 18:36
PROVIDERS: Emergency Medicine; Internal Medicine; ADMIT Hospitalist
DX: J69.0 Pneumonitis due to inhalation of food and vomit (principal); J96.01 Acute respiratory failure with hypoxia; I50.23 Acute on chronic systolic (congestive) heart failure; I25.10 Atherosclerotic heart disease of native coronary artery without angina pectoris; D50.9 Iron deficiency anemia, unspecified; J44.9 Chronic obstructive pulmonary disease, unspecified; I11.0 Hypertensive heart disease with heart failure; I25.5 Ischemic cardiomyopathy; F17.210 Nicotine dependence, cigarettes, uncomplicated; Z99.81 Dependence on supplemental oxygen; Z95.1 Presence of aortocoronary bypass graft; Z79.01 Long term (current) use of anticoagulants; Z79.82 Long term (current) use of aspirin; Z79.51 Long term (current) use of inhaled steroids; Z79.52 Long term (current) use of systemic steroids; Z79.899 Other long term (current) drug therapy
CPT/HCPCS: 36415; 36600; 71046; 80048; 80053; 82607; 82728; 82746; 82803; 83540; 83550; 83605; 85025; 87040; 92526; 92610; 93005; 93010; 94640; 94760; 94761; 96365; 97110; 97116; 97162; 97165; 97535; 99285-25; J0696; J1650; J2543; J2916; J7050; J7512

== ENCOUNTER 2019-06-22 03:22 | Inpatient (IN) | payer OTHER ==
[~2019-06-22] VITALS: Ht 147.3 cm; Wt 59.8 kg
[~2019-06-22 03:22] MED LIST changes: +ATOR20 PO; +CLINDAMYCIN PO; +OXYGEN; +Prednisone10 MG PO
[2019-06-22 04:03] LABS: BASOPHILS ABSOLUTE AUTO 0.05 K/mm3 (0.00-0.23); BASOPHILS PERCENT AUTO 0 % (0-2); EOSINOPHILS ABSOLUTE AUTO 0.19 K/mm3 (0.00-0.68); EOSINOPHILS PERCENT AUTO 2 % (0-6); Hemoglobin 9.7 g/dL (11.5-16.0); IMMATURE GRAN ABSOLUTE AUTO 0.03 K/mm3 (0.00-0.10); IMMATURE GRAN PERCENT AUTO 0 % (0-1); LYMPHOCYTES ABSOLUTE AUTO 2.54 K/mm3 (0.84-5.20); LYMPHOCYTES PERCENT AUTO 23 % (21-46); MONOCYTES ABSOLUTE AUTO 0.75 K/mm3 (0.16-1.47); MONOCYTES PERCENT AUTO 7 % (4-13); Mean Corpuscular HGB Conc 31.3 g/dL (31.5-36.5); Mean Corpuscular Volume 93 fL (80-100); Mean Platelet Volume 10.3 fL (9.1-12.4); NEUTROPHILS ABSOLUTE AUTO 7.74 K/mm3 (1.96-9.15); NEUTROPHILS PERCENT AUTO 69 % (41-73); Platelet Count 213 K/mm3 (150-400); RDW Coefficient Variation 13.4 % (11.7-14.2); RDW Standard Deviation 45.9 fL (35.1-46.3); Red Blood Cell Count 3.34 M/mm3 (3.80-5.20)
[2019-06-22 04:18] LABS: PCO2 Arterial 47.8 mmHg (35-45); PO2 Arterial 65.9 mmHg (80-100); pH Blood Arterial 7.39 (7.35-7.45)
[2019-06-22 04:21] LABS: Albumin, Blood 3.5 g/dL (3.4-5.0); Bilirubin, Total 0.4 mg/dL (0.1-1.0); Bun/Creatinine Ratio 19.4 (12.0-20.0); Calcium, Blood 8.7 mg/dL (8.5-10.1); Creatinine, Blood 1.03 mg/dL (0.40-1.00); Globulin, Blood 3.4 g/dL (2.2-4.0); Potassium, Blood 4.1 mmol/L (3.5-5.5); Total Protein, Blood 6.9 g/dL (6.4-8.2); Troponin I 0.023 ng/mL (0.000-0.040)
--- NOTE | 2019-06-22 06:54 | NUR ---
PATIENT ARRIVED TO ICU10 VIA GURNEY FROM ER AT APPROX 0550, PATIENT TRANSFERED TO BED, VSS. PATIENT ALERT AND ORIENTED, SKIN FRAGILE BUT C/D/I, O2 AT 8LNC WITH SATURATION OF 90%. PATIENT ADMISSION COMPLETED, ORIENTED TO ROOM CALL LIGHT, UNIT AND HOSPITAL POLICIES. PATIENT SBP LOW FOR SEVERAL READINGS,A CUFF CHANGED TO A MORE APPROPRIATE FIT, BLOOD PRESSURE NOW READING HIGHER. PATIENT ALERT AND ORIENTED BUT FORGETFULL, HANDOFF TO DAYSHIFT NURSE AT APPROX 0700
[2019-06-22 11:20] LABS: Adenovirus Not Detected (NOT DETECT); Coronavirus 229E Not Detected (NOT DETECT); Coronavirus HKU1 Not Detected (NOT DETECT); Coronavirus NL63 Not Detected (NOT DETECT)
[2019-06-22 11:21] LABS: Bordetella pertussis Not Detected (NOT DETECT); Chlamydophila pneumoniae Not Detected (NOT DETECT); Coronavirus OC43 Not Detected (NOT DETECT); Human Metapneumovirus Not Detected (NOT DETECT); Human Rhinovirus/Enterovirus Not Detected (NOT DETECT); Influenza A Not Detected (NOT DETECT); Influenza A/2009-H1 Not Detected (NOT DETECT); Influenza A/H1 Not Detected (NOT DETECT); Influenza A/H3 Not Detected (NOT DETECT); Influenza B Not Detected (NOT DETECT); Mycoplasma pneumoniae Not Detected (NOT DETECT); Parainfluenza Virus 1 Not Detected (NOT DETECT); Parainfluenza Virus 2 Not Detected (NOT DETECT); Parainfluenza Virus 3 Not Detected (NOT DETECT); Parainfluenza Virus 4 Not Detected (NOT DETECT); Respiratory Syncytial Virus Not Detected (NOT DETECT)
--- NOTE | 2019-06-22 16:55 | NUR ---
PATIENT GAVE [employer] ARCHITECT PERMISSION TO PROVIDE CARE ON 06/22/2019
--- NOTE | 2019-06-22 18:43 | NUR ---
SHIFT SUMMARY PT IS ALERT AND ORIENTED, HAS REMAINED ON 5L OF OXYGEN VIA NC THE ENTIRE SHIFT. LUNGS SOUNDS IMPROVED BY THIS AFTERNOON WITH COARSE BASES AND DIM THROUGH OUT. PT APPROPRIATELY DIURESISED, HOWEVER WAS INCONTINENT. MONITOR SHOWS PT TO BE V-PACED, RATE 70'S-80'S. SBP ELEVATED, DR CELIS AWARE, AND RESTARTED HER COZAAR. OTHER VITALS HAVE REMAINED STABLE.
--- NOTE | 2019-06-22 19:31 | NUR ---
STUDENT NURSE WAS WITH THIS RN IN THE AFTERNOON. REVIEWED CHARTING AND AGREE WITH STUDENTS ASSESSMENTS.
--- NOTE | 2019-06-22 21:10 | NUR ---
REPORT GIVEN TO Angel NELSON RN USING SBAR. TRANSPORTED TO ROOM 357 VIA HOSPITAL BED WITH ALL BELONGINGS ON BED.
[2019-06-23 01:18] LABS: PCO2 Arterial 75.8 mmHg (35-45)
--- NOTE | 2019-06-23 01:54 | NUR ---
ASSUMED CARE NOTE: PT ARRIVED TO THE UNIT ON 15L OF O2 VIA NON-REBREATHER, SPO2 100%. SPB WAS 137, HELD NS FLUID BLOUS. CALLED DR. ISSA UPDATED HER ON STATUS, ORDERS GIVEN TO STOP FLUIDS. LUNG SOUNDS ARE WHEEZE T/O. PT IS A/OX3, ABLE TO ANSWER QUESTIONS. PT DENIED CHEST PAIN. WHEN ASKED WHAT HAPPENED PT STATED" I WAS REALLY ANXIOUS". PT IS CURRENTLY ON BIPAP WITH SETTINGS @ 12/6, FIO2 60%, SPO2 @ 100%. WILL CONTINUE TO MONITOR PT T/O SHIFT.
--- NOTE | 2019-06-23 03:23 | NUR ---
UPDATE: PT TOOK A 10 MIN BREAK FROM BIPAP, AND WAS PLACED ON 6L OF 02 VIA HIGH FLOW CANNULA, SPO2 ABOVE 90% PT TOOK SMALL SIPS OF WATER, ORAL CARE PROVIDED.
[2019-06-23 03:51] LABS: BASOPHILS ABSOLUTE AUTO 0.01 K/mm3 (0.00-0.23); BASOPHILS PERCENT AUTO 0 % (0-2); EOSINOPHILS PERCENT AUTO 0 % (0-6); Hematocrit 26.2 % (33.0-51.0); Hemoglobin 8.2 g/dL (11.5-16.0); IMMATURE GRAN ABSOLUTE AUTO 0.13 K/mm3 (0.00-0.10); IMMATURE GRAN PERCENT AUTO 1 % (0-1); LYMPHOCYTES ABSOLUTE AUTO 0.32 K/mm3 (0.84-5.20); LYMPHOCYTES PERCENT AUTO 2 % (21-46); MONOCYTES ABSOLUTE AUTO 0.28 K/mm3 (0.16-1.47); MONOCYTES PERCENT AUTO 2 % (4-13); Mean Corpuscular HGB 28.9 pg (26.0-34.0); Mean Corpuscular HGB Conc 31.3 g/dL (31.5-36.5); Mean Corpuscular Volume 92 fL (80-100); Mean Platelet Volume 10.5 fL (9.1-12.4); NEUTROPHILS ABSOLUTE AUTO 15.78 K/mm3 (1.96-9.15); NEUTROPHILS PERCENT AUTO 96 % (41-73); Platelet Count 185 K/mm3 (150-400); RDW Coefficient Variation 13.4 % (11.7-14.2); RDW Standard Deviation 45.1 fL (35.1-46.3); Red Blood Cell Count 2.84 M/mm3 (3.80-5.20); White Blood Cell Count 16.52 K/mm3 (4.00-11.30)
[2019-06-23 04:14] LABS: Alanine Aminotransfer (ALT/SGP 22 U/L (12-78); Albumin, Blood 3.5 g/dL (3.4-5.0); Albumin/Globulin Ratio 1.2 (0.8-1.8); Alk Phos 46 U/L (50-136); Anion Gap 8 mmol/L (6-16); Aspartate Aminotrans (AST/SGOT 21 U/L (12-37); Bilirubin, Total 0.4 mg/dL (0.1-1.0); Blood Urea Nitrogen 27 mg/dL (8-24); CO2, Blood 30 mmol/L (21-32); Calcium, Blood 8.7 mg/dL (8.5-10.1); Chloride, Blood 101 mmol/L (98-108); Creatinine, Blood 1.08 mg/dL (0.40-1.00); Glomerular Filtration Rate 52 (60-); Glucose, Blood 186 mg/dL (70-99); Potassium, Blood 3.7 mmol/L (3.5-5.5); Sodium, Blood 139 mmol/L (136-145); Total Protein, Blood 6.5 g/dL (6.4-8.2)
[2019-06-23 04:22] LABS: Free Thyroxine 1.22 ng/dL (0.70-1.60); Thyroid Stimulating Hormone 0.679 uIU/mL (0.360-4.800); Vancomycin, Random 5.5 ug/mL
--- NOTE | 2019-06-23 05:42 | NUR ---
SHIFT SUMMARY: SEE RAPID RESPONSE CHARTING. PT CONTINUES TO BE ON BIPAP WITH SETTINGS @ 12/6, WITH FiO2 OF 60%, SPO2 @ 100 %. PT IS ALERT AND ORIENTEDX3, IS ABLE TO FOLLOW DIRECTIONS. PT HAS BEEN V-PACED WITH HR IN THE 80'S. PT CONTINUES TO DENY CHEST PAIN. PT WAS GIVEN SMALL SIPS OF WATER, PT THEN BEGAN TO COUGH, NO MORE WATER WAS GIVEN, WILL PASS ON IN REPORT. PT IS INCONTINENT OF URINE, ATTENDS IN PLACE. BED AT LOWEST LEVEL, CALL LIGHT WITHIN REACH. WILL CONTINUE TO MONITOR UNTIL REPORT IS GIVEN TO ONCOMING SHIFT.
--- NOTE | 2019-06-23 09:29 | NUR ---
CARE ASSUMED ASSESSMENT COMPLETED. PT TAKEN OFF OF BIPAP AND PLACED ON 9L/HIGH FLOW NC BY RT, SPO2 93%, PT DENIES SOB OR CHEST PAIN. LS WITH FINE CRACKLES IN BILAT BASES, NO PERIPHERAL EDEMA NOTED. HR 90'S PACED, VSS. PT TOLERATED PO MEDICATIONS WELL IN APPLESAUCE. WILL CONTINUE TO MONITOR.
[2019-06-23 10:39] LABS: PCO2 Arterial 43.2 mmHg (35-45); PO2 Arterial 56.4 mmHg (80-100); pH Blood Arterial 7.44 (7.35-7.45)
--- NOTE | 2019-06-23 13:39 | NUR ---
UPDATE PT NAPPED ON AND OFF THIS MORNING, HAD AN ST EVALUATION, DIET CHANGED, DYSPHAGIA PRECAUTIONS IN PLACE, PT TO GO FOR BARIUM SWALLOW STUDY. DR. ENRIQUEZ AND DR. CELIS IN TO ASSESS, NEW ORDERS. PT PLEASANT AND COOPERATIVE WITH CARE, HAS BEEN ON 5LNC, SPO2 LOW 90'S. FINE CRACKLES REMAIN IN BASES, PT HAD LASIX PER ORDERS. PT TOLERATED PUREE LUNCH WELL, HAD VISITOR AT BEDSIDE, DENIES NEEDS AT THIS TIME. ABG IMPROVING.
--- NOTE | 2019-06-23 16:41 | NUR ---
Initial palliative care consult: Met with Aliyah this afternoon in the ICU. She is a 79 year old with a history of CAD s/p CABG, CHF, HTN, COPD with home O2, CKD, a-fib, depression. She was admitted for possible pneumonia, COPD exacerbation. She is currently in the ICU but as medical floor status. Aliyah lives with family, granddaughter and great grandchild. She reports she is never alone at home as she has extended family that are always around. She reports that they care for her when needed. They drive her to and from appointments. She has a nebulizer machine at home which she states makes her nervous to use at times. COPD and CHF education given. She reports she doesn't own a scale at home. She states some of her lung medications are very expensive and this makes it difficult with finances. She reports that last night when she said she wanted to that she was very anxious. She reports that she doesn't want to a this time, however she states that she knows that sooner rather than later she will pass away. She reports she freqently has to come to the hospital and it takes longer and longer each time to bounce back. She states next month is the one year anniversary of her daughter's and this weighs heavily on her. She reports that she has lost multiple children. Discussed her DNI status and the different options for full code and DNR. She states she would like to do some thinking to consider what she wants. She has an old POLST form at home but isn't sure were it is or the condition it is in. Offered to let her rest and think about what she would want re: code status. Encouraged her to let staff know if she would like to fill out a POLST and we will assist her with that. PC will continue to follow. Pt would benefit from CHF and COPD education as well as the high risk readmission program.
--- NOTE | 2019-06-23 16:51 | NUR ---
MED FLOOR TRANSFER VSS, PT ON 5L/NC, SPO2 >90%, LS UNCHANGED. PT HAS BEEN OFF OF BIPAP SINCE BEFORE BREAKFAST, DESATS WITH OCCASIONAL COUGHING SPELLS BUT RECOVERS QUICKLY. NO SPUTUM FOR SPECIMEN COLLECTION. PT TOLERATING PO MEDICATIONS WELL IN APPLESAUCE, SPOKE WITH PALLIATIVE CARE REGARDING CODE STATUS, NO CHANGES AT THIS TIME. PT PLEASANT AND COOPERATIVE, ALERT AND ORIENTED X4. TO ROOM 355 AT THIS TIME, REPORT TO RECEIVING NURSE.
--- NOTE | 2019-06-23 18:15 | NUR ---
PT ARRIVED TO THE MEDICAL FLOOR FROM THE ICU, VIA STRETCHER, A/OX3, PLEASANT AND COOPERATIVE, THE PT IS SOB WITH MINIMAL ACTIVITY, PT IS ON O2 @ 5L/MIN HER HOME BASELINE, SHE IS MAINTAINING O2 SATS IN THE LOW 90% AT THIS TIME, PT WAS GIVEN TYLENOL FOR COATES 5/10 FROM COUGHING, PT WA ORIENTED TO THE ROOM LAYOUT AND CALL SYSTEM, CALL LIGHT IN REACH, WILL CONTINUE TO MONITOR AND ASSESS FOR CHANGES
[2019-06-24 05:12] LABS: PCO2 Venous 48.7 mmHg (38-42); PO2 Venous 64.2 mmHg (38-42); pH Blood Venous 7.42 (7.34-7.37)
[2019-06-24 05:14] LABS: BASOPHILS ABSOLUTE AUTO 0.01 K/mm3 (0.00-0.23); BASOPHILS PERCENT AUTO 0 % (0-2); EOSINOPHILS PERCENT AUTO 0 % (0-6); Hemoglobin 8.3 g/dL (11.5-16.0); IMMATURE GRAN PERCENT AUTO 1 % (0-1); LYMPHOCYTES ABSOLUTE AUTO 0.45 K/mm3 (0.84-5.20); LYMPHOCYTES PERCENT AUTO 3 % (21-46); MONOCYTES ABSOLUTE AUTO 0.39 K/mm3 (0.16-1.47); MONOCYTES PERCENT AUTO 2 % (4-13); Mean Corpuscular HGB 29.6 pg (26.0-34.0); Mean Corpuscular HGB Conc 31.9 g/dL (31.5-36.5); Mean Corpuscular Volume 93 fL (80-100); Mean Platelet Volume 10.2 fL (9.1-12.4); NEUTROPHILS ABSOLUTE AUTO 16.63 K/mm3 (1.96-9.15); NEUTROPHILS PERCENT AUTO 94 % (41-73); Platelet Count 193 K/mm3 (150-400); RDW Coefficient Variation 13.7 % (11.7-14.2); RDW Standard Deviation 46.8 fL (35.1-46.3); White Blood Cell Count 17.68 K/mm3 (4.00-11.30)
[2019-06-24 05:52] LABS: Bun/Creatinine Ratio 35.8 (12.0-20.0); Calcium, Blood 8.8 mg/dL (8.5-10.1); Creatinine, Blood 1.06 mg/dL (0.40-1.00); Potassium, Blood 4.6 mmol/L (3.5-5.5)
--- NOTE | 2019-06-24 16:12 | NUR ---
PT IS A/OX3, PLEASANT AND COOPERATIVE, THE PT IS UP WITH ASSIST TO THE CHAIR OR TO THE BSC, HOWEVER, THE PT GETS VERY SOB WITH MINIMAL ACTIVITY, DESATS BUT RECOVERS EASILY SO FAR, THE PT IS ON 5L/MIN O2 VIA NC, WHICH IS HER HOME O2 SETTING, PT HAS A PERSITANT COUGH WITH LITTLE PRODUCTION AT THIS TIME, PT WORKED WITH THE PHYSICAL THERAPIST THIS AFTERNOON, PT DENIES ANY PAIN AT THIS TIME, CALL LIGHT IN REACH, WILL CONTINUE TO MONITOR AND ASSESS FOR CHANGES
[2019-06-25 05:37] LABS: BASOPHILS ABSOLUTE AUTO 0.01 K/mm3 (0.00-0.23); BASOPHILS PERCENT AUTO 0 % (0-2); EOSINOPHILS PERCENT AUTO 0 % (0-6); Hematocrit 27.5 % (33.0-51.0); Hemoglobin 8.4 g/dL (11.5-16.0); IMMATURE GRAN ABSOLUTE AUTO 0.11 K/mm3 (0.00-0.10); IMMATURE GRAN PERCENT AUTO 1 % (0-1); LYMPHOCYTES ABSOLUTE AUTO 0.38 K/mm3 (0.84-5.20); LYMPHOCYTES PERCENT AUTO 3 % (21-46); MONOCYTES ABSOLUTE AUTO 0.37 K/mm3 (0.16-1.47); MONOCYTES PERCENT AUTO 2 % (4-13); Mean Corpuscular HGB 28.8 pg (26.0-34.0); Mean Corpuscular HGB Conc 30.5 g/dL (31.5-36.5); Mean Corpuscular Volume 94 fL (80-100); Mean Platelet Volume 10.4 fL (9.1-12.4); NEUTROPHILS ABSOLUTE AUTO 14.24 K/mm3 (1.96-9.15); NEUTROPHILS PERCENT AUTO 94 % (41-73); Platelet Count 200 K/mm3 (150-400); RDW Coefficient Variation 13.9 % (11.7-14.2); RDW Standard Deviation 47.9 fL (35.1-46.3); Red Blood Cell Count 2.92 M/mm3 (3.80-5.20); White Blood Cell Count 15.11 K/mm3 (4.00-11.30)
[2019-06-25 06:05] LABS: Bun/Creatinine Ratio 37.4 (12.0-20.0); Calcium, Blood 8.7 mg/dL (8.5-10.1); Creatinine, Blood 0.99 mg/dL (0.40-1.00); Potassium, Blood 4.1 mmol/L (3.5-5.5)
--- NOTE | 2019-06-25 16:42 | NUR ---
PT IS A/OX3, PLEASANT AND COOPERATIVE, THE PT IS UP WITH MINIMAL ASSIST TO THE BSC, HOWEVER, THE PT STILL BECOMES VERY SOB WITH ACTIVITY, THE PT IS ON 5L/MIN O2 VIA NC, HER HOME 02 BASELINE, THE PT WAS GIVEN TYLENOL FOR A COATES X1 SO FAR TODAY, THE PT REPORTED ABD DISCOMFORT DUE TO CONDTIPATION, THE PT WAS GIVEN THE ORDERED TAZ S AND SO FAR HAS A SMALL BM CONSISTING OF SMALL HARD NICKIE, PT REPORTS THAT SHE IS PASSING GAS, ABD IS SOFT, CALL LIGHT IN REACH, WILL CONTINUE TO MONITOR AND ASSESS FOR CHANGES
--- NOTE | 2019-06-25 20:46 | NUR ---
PATIENT GIVEN WARM PRUNE JUICE AND BUTTER TO AID WITH CONSTIPATION. SENNA LAX GIVEN EARLIER WITH ONLY SMALL RESULT.
--- NOTE | 2019-06-26 05:52 | NUR ---
SR. MERCHANDISE PLANNER SUMMARY Britt continues to have a very difficult time belaying her anxiety and relaxing. while awake, she was squirming about the bed, usually trying to get comfortable. Unfortunately, as the night previous, she refused to use the bipap except for 5-10 minute stretches due to feeling like she couldn't breath. On her baseline 5 liters (on high flow)her 02 sat remained in low 90's while asleep only dropping to low 80's when she would wake due to her constant movement, hacking and mouthbreathing. constant redirection required when awake to try to get her to breath into her nose and out of her mouth
--- NOTE | 2019-06-26 11:45 | NUR ---
REPORT RECEIVED FROM [facility] SHIFT NURSE, PT USING NC 5L VIA NC, STATES SHE IS NOT NEEDING ENOUGH AIR TO USE CPAP, call light in reach, saline locked, took medication with no trouble, bm today medium formed, family in to check verified pt wanted info shared and up dated family as to pt status, bed in low position but pt moves it at will, states she slept well but ls still course, government relations analyst weak but even, pulses strong, profusion good, PERRL, no edema, will continue to monitor and treat as prescribed
[2019-06-26] MEDS ORDERED: TIOT18 INH (15:56)
--- NOTE | 2019-06-26 19:29 | NUR ---
a+o, [place], call light in reach, report shared with pt and noc nurse, saline locked breathing easier but still sob with exertion
--- NOTE | 2019-06-27 04:13 | NUR ---
SUMMARY PT GETS SOB W/ EXERTION. PT HAS NOT SLEPT MUCH THIS SHIFT. PT IS UTE. PT CURRENTLY RESTING AND BREATHING EASY. PT HAS BEEN VOIDING URINE T/O SHIFT. CALL LIGHT IN REACH. TM
--- NOTE | 2019-06-27 14:18 | NUR ---
Patient gave permission to student YOSEPH Wilde on 06/27/2019 to view medical record for patient care on next day 06/28/2019.
--- NOTE | 2019-06-27 19:43 | NUR ---
SHIFT SUMMARY: NO ACUTE CAHNGES TO REPORT THIS SHIFT. PT A&O; CALM AND COOPERATIVE WITH CARE. NO C/O PAIN THIS SHIFT. PT ON O2 @ 5L; 5L @ HOME; SOB c EXERTION. UP WITH ONE ASSIST c FWW TO BATHROOM. NECTAR THICK LIQUIDS, PER SPEECH THERAPY; NO STRAWS. REPORT GIVEN TO ONCOMING RN.
--- NOTE | 2019-06-28 02:35 | NUR ---
PT PRESENTLY SLEEPING ON 5LNC WHICH APPEARS TO BE HER BASELINE. SHE IS AAOX4 WITH E/U RESPIRATIONS NO COMPLAINTS OF PAIN OR DISCOMFORT WHILE AWAKE. WILL CONTINUE TO MONITOR.
--- NOTE | 2019-06-28 07:36 | NUR ---
SHIFT SUMMARY SEE PREVIOUS NOTE. NO ACUTE CHANGES. PT SLEPT MUCH OF THE NIGHT. VSS. NO COMPLAINTS OF PAIN OR DISCOMFORT WITH THE EXCEPTION OF SOME CONSTIPATION, TREATED PER EMAR. DID NOT USE CPAP, REFUSED. CONTINUES TO BE ON 5LNC. REPORT TO ONCOMING RN.
[2019-06-28 08:55] LABS: Hematocrit 32.5 % (33.0-51.0); Hemoglobin 10.3 g/dL (11.5-16.0); Mean Corpuscular HGB 29.4 pg (26.0-34.0); Mean Corpuscular HGB Conc 31.7 g/dL (31.5-36.5); Mean Corpuscular Volume 93 fL (80-100); Platelet Count 248 K/mm3 (150-400); White Blood Cell Count 17.08 K/mm3 (4.00-11.30)
[2019-06-28 09:19] LABS: Anion Gap 5 mmol/L (6-16); Blood Urea Nitrogen 30 mg/dL (8-24); Bun/Creatinine Ratio 31.8 (12.0-20.0); CO2, Blood 34 mmol/L (21-32); Chloride, Blood 97 mmol/L (98-108); Creatinine, Blood 0.94 mg/dL (0.40-1.00); Glomerular Filtration Rate >60 (60-); Glucose, Blood 94 mg/dL (70-99); Potassium, Blood 3.9 mmol/L (3.5-5.5); Sodium, Blood 136 mmol/L (136-145)
--- NOTE | 2019-06-28 19:24 | NUR ---
PT QUITE PLEASANT TODAY. DENIED PAIN. AMBULATED SBA TO BATHROOM TODAY. CONTINUES ON 5L O2. FAMILY/FRIEND IN TO VISIT THIS AFTERNOON. QUITE PLEASANT LADY. HAS BEEN UP IN CHAIR MUCH OF DAY. BACK TO BED NOW. NO OTHER CONCERNS AT THIS TIME. BED IN LOW POSITION, CALL LITE IN REACH, CALLS APPROP
--- NOTE | 2019-06-29 05:35 | NUR ---
SUMMARY NO ISSUES NOTED. PT HAS RESTED T/O SHIFT. PT CURRENTLY SLEEPING IN NO DISTRESS. CALL LIGHT IN REACH. TM
[2019-06-29] MEDS ORDERED: ALBU2.5V5 INH (12:28)
[2019-06-29] MEDS ORDERED: Furosemide20 MG PO (12:33)
[2019-06-29] MEDS ORDERED: GUAI600T33 PO (12:35)
[2019-06-29] MEDS ORDERED: PRED20 PO (12:36)
[2019-06-29] MEDS ORDERED: Duoneb 2.5-0.5 M3 ML INH (12:36)
--- NOTE | 2019-06-29 14:11 | NUR ---
DISCHARGE INSTRUCTIONS REVIEWED IN DEPTH WITH PT. IV DC'D INTACT. RX FAXED TO PHARMACY. PT SPOKE TO REGARDING ASPIRATION PRECAUTIONS AND DIET RECOMMENDATION BY SPEECH THERAPY, THICK IT GIVEN TO PT. SPOKE WITH FAMILY MEMBER CELINA WHO IS BRINGING PT HOME 02 AND COMING TO CHIEF SAFETY OFFICER PT.
--- NOTE | 2019-06-29 15:27 | NUR ---
DISCHARGE INSTRUCTIONS AGAIN REVIEWED IN DEPTH WITH GRAND DAUGHTER CELINA. SHE WAS VERY NERVOUS ABOUT THE CHANGES TO THE MEDICATIONS AND REPORTS SHE IS UNSURE HOW SHE WILL MANAGE. EDUCATED HER ON HOME HEALTH COMING TO ASSIST WELL PULL THROUGH HOOKER CLAUDIA COMING TO GIVE LOCAL RESOURCES. EDUCATION GIVEN ON ASPIRATION PRECAUTIONS AND PUREE DIET WITH NECTAR THICK, RX FOR THICK IT GIVEN.
--- NOTE | 2019-06-29 15:51 | NUR ---
PT DISCHARGED AT 1550, ESCORTED OUT VIA W/C TO D/C HOME WITH GRAND DAUGHTER.
== END 2019-06-29 15:50 | disposition home health service (06) | DRG 189 ==
LOC: ER 03:22 → ICUW 05:46 → ICUE 05:46 → ICUW 05:54 → MEDS 20:59 → ICUE 06-23 01:21 → MEDS 06-23 16:46
PROVIDERS: Emergency Medicine; Internal Medicine; Internal Medicine Critical Care Medicine; ADMIT Family Medicine
PROC: 5A09457 Assistance with Respiratory Ventilation, 24-96 Consecutive Hours, Continuous Positive Airway Pressure (ICD-10-PCS; principal; 2019-06-22)
DX: J96.21 Acute and chronic respiratory failure with hypoxia (principal); J44.1 Chronic obstructive pulmonary disease with (acute) exacerbation; I13.0 Hypertensive heart and chronic kidney disease with heart failure and stage 1 through stage 4 chronic kidney disease, or unspecified chronic kidney disease; D63.1 Anemia in chronic kidney disease; Z66 Do not resuscitate; R54 Age-related physical debility; I25.10 Atherosclerotic heart disease of native coronary artery without angina pectoris; G47.33 Obstructive sleep apnea (adult) (pediatric); M62.84 Sarcopenia; I25.5 Ischemic cardiomyopathy; Z95.1 Presence of aortocoronary bypass graft; Z87.891 Personal history of nicotine dependence; Z99.81 Dependence on supplemental oxygen; J96.22 Acute and chronic respiratory failure with hypercapnia; I48.91 Unspecified atrial fibrillation; F32.9 Major depressive disorder, single episode, unspecified; K21.9 Gastro-esophageal reflux disease without esophagitis; Z86.14 Personal history of Methicillin resistant Staphylococcus aureus infection; Z95.0 Presence of cardiac pacemaker; N18.3 Chronic kidney disease, stage 3 (moderate)
CPT/HCPCS: 0099U; 36415; 36600; 71045; 71046; 74220; 80048; 80053; 80202; 82803; 83605; 83880; 84145; 84439; 84443; 84484; 85025; 85027; 87040; 87070; 87205; 92526; 92610; 93005; 93010; 94640; 94644; 94660; 94762; 97110; 97116; 97162; 97530; 99285-25; A9270; A9270-GY; J0696; J1650; J1940; J1956; J2060; J2405; J2543; J2930; J3370; J7030; J7050; J7512

== ENCOUNTER 2020-01-18 12:44 | Emergency (ER) | payer OTHER ==
[~2020-01-18] VITALS: Ht 147.3 cm; Wt 59.0 kg
[~2020-01-18 12:44] MED LIST changes: +ALBU2.5V5 INH; +ALBU90OI INH; +DOXY100 PO; +Duoneb 2.5-0.5 M3 ML INH; +GUAI600T33 PO; +Hydrocodone-Ap1 EA23 PO; +IPRAT-ALBUT 0.5-3 ML INH; +IRON160 M2 PO
[2020-01-18 13:13] LABS: BASOPHILS ABSOLUTE AUTO 0.05 K/mm3 (0.00-0.23); BASOPHILS PERCENT AUTO 0 % (0-2); EOSINOPHILS PERCENT AUTO 1 % (0-6); Hematocrit 28.4 % (33.0-51.0); Hemoglobin 8.9 g/dL (11.5-16.0); IMMATURE GRAN ABSOLUTE AUTO 0.02 K/mm3 (0.00-0.10); IMMATURE GRAN PERCENT AUTO 0 % (0-1); LYMPHOCYTES PERCENT AUTO 13 % (21-46); MONOCYTES ABSOLUTE AUTO 0.77 K/mm3 (0.16-1.47); MONOCYTES PERCENT AUTO 6 % (4-13); Mean Corpuscular HGB 28.5 pg (26.0-34.0); Mean Corpuscular HGB Conc 31.3 g/dL (31.5-36.5); Mean Corpuscular Volume 91 fL (80-100); NEUTROPHILS ABSOLUTE AUTO 9.57 K/mm3 (1.96-9.15); NEUTROPHILS PERCENT AUTO 80 % (41-73); Platelet Count 220 K/mm3 (150-400); RDW Standard Deviation 46.6 fL (35.1-46.3); Red Blood Cell Count 3.12 M/mm3 (3.80-5.20); White Blood Cell Count 12.01 K/mm3 (4.00-11.30)
[2020-01-18 13:32] LABS: Albumin, Blood 3.2 g/dL (3.4-5.0); Albumin/Globulin Ratio 0.9 (0.8-1.8); Bilirubin, Total 0.6 mg/dL (0.1-1.0); Bun/Creatinine Ratio 24.8 (12.0-20.0); Calcium, Blood 8.9 mg/dL (8.5-10.1); Creatinine, Blood 1.21 mg/dL (0.40-1.00); Globulin, Blood 3.5 g/dL (2.2-4.0); Potassium, Blood 4.4 mmol/L (3.5-5.5); Total Protein, Blood 6.7 g/dL (6.4-8.2); Troponin I 0.017 ng/mL (0.000-0.040)
[2020-01-18] MEDS ORDERED: Prednisone20 MG PO (15:05)
[2020-01-18] MEDS ORDERED: AZIT250 PO (15:05)
== END 2020-01-18 17:16 | disposition home or self-care (01) ==
LOC: ER 12:44
PROVIDERS: Emergency Medicine
DX: J44.1 Chronic obstructive pulmonary disease with (acute) exacerbation (principal); Z88.8 Allergy status to other drugs, medicaments and biological substances; Z79.82 Long term (current) use of aspirin; Z79.899 Other long term (current) drug therapy; Z79.02 Long term (current) use of antithrombotics/antiplatelets; Z79.52 Long term (current) use of systemic steroids
CPT/HCPCS: 71045; 80053; 83880; 84484; 85025; 93005; 93010; 99285-25